=== PATIENT | male | born 1975 | race Caucasian/White ===

== ENCOUNTER → 2017-02-20 | Outpatient (CLI) | payer BC ==
[~2017-02-20] MED LIST: Gadobenate Dimeglumine 529 MG/ML 20 ML SDV IVPUSH STA
--- NOTE | 2017-02-24 10:28 | MR ---
EXAM DATE: 02/20/17 PATIENT'S AGE: 42 Patient: OBDULIO GAYTAN Facility: [place], [place] Site . Site : 1975 Study: MRI Spine Cervical [id number]/26/2017 7:25:46 PM Ordering Physician: Andres Alfonso Final Report: Indication: Neck pain. Comparison: None. Technique: Sagittal T1, T2, and STIR sequences. Axial T2/gradient sequences. posteriorly in 2 weighted sequences. Findings: Motion artifact. Straightening of the normal cervical lordosis which may be due to muscle spasm or patient positioning. Otherwise, normal vertebral body facet alignment. No fractures. No vertebral body loss of height. No spondylolisthesis. No ligamentous injury. Normal marrow signal. Normal cord signal. Visualized brainstem cerebellum appear normal. No abnormal enhancement. C2-3: No spinal canal or neural foraminal narrowing. C3-4: Disk degeneration with posterior disc bulge or disk osteophyte complex. Mild narrowing of spinal canal. Mild right and moderate left neural foraminal narrowing. Possible impingement of the left C4 nerve root. C4-5: Posterior disk bulge a disc osteophyte complex. Mild narrowing of spinal canal. Moderate bilateral neural foraminal narrowing with possible impingement of the C5 nerve roots. C5-6: Disc degeneration with posterior disc bulge. Mild narrowing of spinal canal. Moderate bilateral neural foraminal narrowing with impingement of the C6 nerve roots. C6-7: Disc degeneration with a left paracentral disc protrusion or disk osteophyte complex. Mild narrowing of spinal canal. Moderate right and moderate severe left neural foraminal narrowing. Impingement of the C7 nerve roots, left greater than right. C7-T1: No spinal canal or neural foraminal narrowing. No spinal canal or neural foraminal narrowing in the visualized upper thoracic spine. Impression: 1. Motion artifact. 2. Straightening of the normal cervical lordosis. Otherwise, normal alignment. No fractures. No spondylolisthesis. 3. Normal cord signal. 4. No abnormal enhancement. 5. At C3-4, mild narrowing of the spinal canal. Moderate narrowing of the left neural foramen. Possible impingement of the left C4 nerve root 6. At C4-5, moderate bilateral neural foraminal narrowing with possible impingement of the C5 nerve roots 7. At C5-6, moderate bilateral neural foraminal narrowing with possible impingement of the C6 nerve roots 8. At C6-7, moderate right and moderate to severe left neural foraminal narrowing. Impingement of the C7 nerve roots, left greater than right Dictated by Migel Ardon MD @ Feb 20 2017 10:12PM (Electronic Signature) Report Signed by Proxy. XI
== END ==
LOC: MW.MRI 17:49
PROVIDERS: ATTEND Chiropractor
DX: M99.01 Segmental and somatic dysfunction of cervical region (principal); M54.2 Cervicalgia; R20.0 Anesthesia of skin
CPT/HCPCS: 72156; A9577

== ENCOUNTER 2017-02-28 11:58 | Emergency (ER) | payer BC ==
[2017-02-28] MEDS ORDERED: Aspirin 81 MG Tab.Chew ONE (12:07)
[2017-02-28] MEDS ORDERED: Nitroglycerin 0.4 MG Tab.SL ONE (12:07)
[2017-02-28] MEDS ORDERED: Nitroglycerin 0.4 MG Tab.SL SL PRN (12:08)
[2017-02-28] MEDS ORDERED: Aspirin 81 MG Tab.Chew PO ONE ×2 (12:08→12:11)
[2017-02-28] MEDS ORDERED: Sodium Chloride 0.9% 2.5 ML Syringe FLUSH PRN ×2 (12:11)
[2017-02-28] MEDS ORDERED: Sodium Chloride 0.9% 10 ML Syringe FLUSH PRN ×2 (12:11)
--- NOTE | 2017-02-28 12:21 | EDM.PDOC ---
ED HPI GENERAL MEDICAL PROBLEM - General Chief Complaint: Chest Pain Stated Complaint: SORE CHEST Time Seen by Provider: 02/28/17 11:59 Source of Information: Reports: Patient History Limitations: Reports: No Limitations - History of Present Illness INITIAL COMMENTS - FREE TEXT/NARRATIVE: Presents to the ER reporting chest heaviness the patient states that about 7:00 last night. While sitting at a restaurant he had a sudden onset of some sharp pain in the TMJ area of his right jaw. At the same time he developed some precordial chest heaviness. No nausea, vomiting, diaphoresis but slight lightheadedness. The episode that was not related to eating as he had not started his meal. The symptoms spontaneously resolved after about 15 minutes. This morning he had some similar chest heaviness but no pain, nausea, sweating or radiation of the symptoms. Again, mild lightheadedness. The patient was resting at the time. The heaviness continues here at the ER but is less pronounced. He is otherwise healthy without chronic medical problems except psoriasis and acid reflux. He does take Nexium on a daily basis but occasionally has to supplement with Rolaids at night for reflux symptoms. Negative family history. He was seen in the clinic for a similar episode in October of 2016. Records including EKG from that visit were reviewed. Chest Pain Score (Numeric/FACES): 4 - Related Data Allergies Allergy/AdvReac Type Severity Reaction Status Date / Time pollen extracts Allergy Other Verified 02/28/17 12:25 Home Meds: Home Meds Esomeprazole Magnesium [Nexium] 20 mg PO DAILY 02/28/17 [History] Lisinopril 5 mg PO DAILY 02/28/17 [History] Simvastatin [Zocor] 5 mg PO BEDTIME 02/28/17 [History] ED ROS GENERAL - Review of Systems Review Of Systems: ROS reveals no pertinent complaints other than HPI. ED EXAM, GENERAL - Physical Exam Exam: See Below General Appearance: Alert Ears: Normal External Exam Nose: Normal Inspection Throat/Mouth: Normal Inspection Head: Atraumatic, Normocephalic Neck: Normal Inspection Respiratory/Chest: No Respiratory Distress, Lungs Clear, Normal Breath Sounds Cardiovascular: Normal Peripheral Pulses, Regular Rate, Rhythm, No Murmur Peripheral Pulses: 3+: Posterior Tibial (L), Posterior Tibial (R) GI/Abdominal: Normal Bowel Sounds, Soft, Non-Tender Back Exam: Normal Inspection Extremities: Normal Inspection Neurological: Alert, Oriented Psychiatric: Normal Affect, Normal Mood Skin Exam: Warm, Dry, Intact, Normal Color, Other (Psoriasis plaques on the flexor surface) Lymphatic: No Adenopathy Course - Vital Signs Last Recorded V/S: Last Vital Signs Temp 36.8 C 02/28/17 12:00 Pulse 77 02/28/17 12:34 Resp 18 02/28/17 12:34 BP 130/86 02/28/17 12:34 Pulse Ox 93 L 02/28/17 12:34 - Orders/Labs/Meds Orders: Active Orders 24 hr Category Date Time Status EKG Documentation Completion [RC] STAT Care 02/28/17 12:11 Active Oxygen Therapy [RC] ASDIRECTED Care 02/28/17 12:11 Active Chest 1V Frontal [CR] Stat Exams 02/28/17 12:11 Ordered Sodium Chloride 0.9% [Saline Flush] Med 02/28/17 12:11 Ordered 10 ml FLUSH ASDIRECTED PRN Sodium Chloride 0.9% [Saline Flush] Med 02/28/17 12:11 Ordered 10 ml FLUSH ASDIRECTED PRN Sodium Chloride 0.9% [Saline Flush] Med 02/28/17 12:11 Ordered 2.5 ml FLUSH ASDIRECTED PRN Sodium Chloride 0.9% [Saline Flush] Med 02/28/17 12:11 Ordered 2.5 ml FLUSH ASDIRECTED PRN Saline Lock Insert [OM.PC] Stat Oth 02/28/17 12:11 Ordered Medication Orders Sodium Chloride (Saline Flush) 10 ml FLUSH ASDIRECTED PRN PRN Reason: Keep Vein Open Sodium Chloride (Saline Flush) 2.5 ml FLUSH ASDIRECTED PRN PRN Reason: Keep Vein Open Sodium Chloride (Saline Flush) 10 ml FLUSH ASDIRECTED PRN PRN Reason: Keep Vein Open Sodium Chloride (Saline Flush) 2.5 ml FLUSH ASDIRECTED PRN PRN Reason: Keep Vein Open Labs: Laboratory Tests 02/28/17 02/28/17 02/28/17 Range/Units 12:15 12:15 12:15 WBC 7.40 (4.0-11.0) K/uL RBC 5.15 (4.50-5.90) M/uL Hgb 15.4 (13.0-17.0) g/dL Hct 44.8 (38.0-50.0) % MCV 87.0 (80.0-98.0) fL MCH 29.9 (27.0-32.0) pg MCHC 34.4 (31.0-37.0) g/dL RDW Std Deviation 41.1 (28.0-62.0) fl RDW Coeff of Roberto 13 (11.0-15.0) % Plt Count 266 (150-400) K/uL MPV 10.10 (7.40-12.00) fL Neut % (Auto) 61.7 (48.0-80.0) % Lymph % (Auto) 22.6 (16.0-40.0) % Emanuel % (Auto) 8.0 (0.0-15.0) % Eos % (Auto) 7.3 H (0.0-7.0) % Baso % (Auto) 0.4 (0.0-1.5) % Neut # (Auto) 4.6 (1.4-5.7) K/uL Lymph # (Auto) 1.7 (0.6-2.4) K/uL Emanuel # (Auto) 0.6 (0.0-0.8) K/uL Eos # (Auto) 0.5 (0.0-0.7) K/uL Baso # (Auto) 0.0 (0.0-0.1) K/uL Nucleated RBC % 0.0 /100WBC Nucleated RBCs # 0 K/uL Sodium 138 (136-146) mmol/L Potassium 4.4 (3.5-5.1) mmol/L Chloride 108 (98-110) mmol/L Carbon Dioxide 21 (21-31) mmol/L BUN 19 (6.0-23.0) mg/dL Creatinine 1.0 (0.6-1.5) mg/dL Est Cr Clr Drug Dosing 102.49 mL/min Estimated GFR (MDRD) > 60.0 ml/min Glucose 98 (60-110) mg/dL Calcium 9.2 (8.8-10.8) mg/dL Total Bilirubin 1.2 (0.1-1.5) mg/dL AST 25 (5-40) IU/L ALT 42 (8-54) IU/L Alkaline Phosphatase 59 (40-150) Troponin I < 0.10 (0.0-0.29) NG/ML Total Protein 7.0 (6.0-8.0) g/dL Albumin 4.5 (3.5-5.0) g/dL Globulin 2.5 (2.0-3.5) g/dL Albumin/Globulin Ratio 1.8 (1.3-2.8) Meds: Medications Generic Name Dose Route Start Last Admin Trade Name Freq PRN Reason Stop Dose Admin Sodium Chloride 10 ml 02/28/17 12:11 Saline Flush FLUSH ASDIRECTED PRN Keep Vein Open Sodium Chloride 2.5 ml 02/28/17 12:11 Saline Flush FLUSH ASDIRECTED PRN Keep Vein Open Sodium Chloride 10 ml 02/28/17 12:11 Saline Flush FLUSH ASDIRECTED PRN Keep Vein Open Sodium Chloride 2.5 ml 02/28/17 12:11 Saline Flush FLUSH ASDIRECTED PRN Keep Vein Open Discontinued Medications Generic Name Dose Route Start Last Admin Trade Name Freq PRN Reason Stop Dose Admin Aspirin 324 mg 02/28/17 12:08 02/28/17 12:09 Aspirin PO 02/28/17 12:09 324 mg STAT ONE Administration Aspirin Confirm 02/28/17 12:07 02/28/17 12:16 Aspirin Administered 02/28/17 12:08 Not Given Dose 324 mg .ROUTE .STK-MED ONE Aspirin 324 mg 02/28/17 12:11 02/28/17 12:16 Aspirin PO 02/28/17 12:12 Not Given ONETIME ONE Nitroglycerin 0.4 mg 02/28/17 12:08 Nitrostat SL 02/28/17 12:19 Q5M PRN Chest Pain Nitroglycerin Confirm 02/28/17 12:07 Nitrostat Administered 02/28/17 12:08 Dose 1.2 mg .ROUTE .STK-MED ONE - Re-Assessments/Exams Free Text/Narrative Re-Assessment/Exam: 02/28/17 13:14 Discussion with the patient that his workup so far is nondiagnostic. He was given the option of observation overnight or close followup with his primary care provider in the clinic. The patient stated that he would prefer to go home as he was already planning an appointment with his primary care provider for early next week and that [place] 5 blocks from the hospital and assured me that he would return promptly for chest pain, shortness of breath, nausea vomiting, lightheadedness. Departure - Departure Time of Disposition: 13:19 Disposition: Home, Self-Care 01 Condition: good Clinical Impression: Atypical chest pain Referrals: PCP,None [Primary Care Provider] - Abbe Butterfield DO [Physician] - Additional Instructions: 1. Followup with your primary provider in the clinic promptly early in next week for further evaluation and. 2. Return promptly for chest pain, shortness of breath, nausea, vomiting. - My Orders Last 24 Hours: My Active Orders 02/28/17 12:11 EKG Documentation Completion [RC] STAT Oxygen Therapy [RC] ASDIRECTED Chest 1V Frontal [CR] Stat Sodium Chloride 0.9% [Saline Flush] 10 ml FLUSH ASDIRECTED PRN Sodium Chloride 0.9% [Saline Flush] 10 ml FLUSH ASDIRECTED PRN Sodium Chloride 0.9% [Saline Flush] 2.5 ml FLUSH ASDIRECTED PRN Sodium Chloride 0.9% [Saline Flush] 2.5 ml FLUSH ASDIRECTED PRN Saline Lock Insert [OM.PC] Stat - Assessment/Plan Last 24 Hours: My Active Orders 02/28/17 12:11 EKG Documentation Completion [RC] STAT Oxygen Therapy [RC] ASDIRECTED Chest 1V Frontal [CR] Stat Sodium Chloride 0.9% [Saline Flush] 10 ml FLUSH ASDIRECTED PRN Sodium Chloride 0.9% [Saline Flush] 10 ml FLUSH ASDIRECTED PRN Sodium Chloride 0.9% [Saline Flush] 2.5 ml FLUSH ASDIRECTED PRN Sodium Chloride 0.9% [Saline Flush] 2.5 ml FLUSH ASDIRECTED PRN Saline Lock Insert [OM.PC] Stat
[2017-02-28 13:03] LABS: CHLORIDE,CL 108 mmol/L (98-110); SODIUM,NA 138 mmol/L (136-146)
[2017-02-28 15:17] VITALS: BP 124/86
--- NOTE | 2017-03-02 14:30 | CR ---
EXAM DATE: 02/28/17 PATIENT'S AGE: 42 Patient: OBDULIO GAYTAN Facility: [place], [place] Site . Site : 1975 Study: XRay Chest [id number]/3/2017 12:41:30 PM Ordering Physician: Doctor Oliva Final Report: Indication: Chest pain. Comparison: None. Findings: The bony thorax and soft tissue structures are intact. The cardiac and mediastinal silhouettes are normal. The pulmonary vasculature is normal. There are no pulmonary infiltrates. Impression: No active pulmonary disease. Dictated by Jaimie Somers MD @ Feb 28 2017 1:05PM (Electronic Signature) Report Signed by Proxy. XI
== END 2017-02-28 13:55 | disposition home or self-care (01) ==
LOC: MW.ED 11:58
DX: R07.89 Other chest pain (principal); Z91.018 Allergy to other foods; Z79.899 Other long term (current) drug therapy
CPT/HCPCS: 36415; 71010; 80053; 84484; 85025; 93005; 99285; A9270; 99284

== ENCOUNTER 2020-12-06 11:30 | Day surgery (SDC) | payer BC ==
[~2020-12-06 11:30] MED LIST changes: -Gadobenate Dimeglumine 529 MG/ML 20 ML SDV IVPUSH STA; +Lactated Ringers 1,000 ML IV SCH
[2020-12-06] MEDS ORDERED: fentaNYL 100 MCG/2 ML SDV ONE (11:36)
[2020-12-06] MEDS ORDERED: Propofol 200 MG/20 ML SDV ONE (11:36)
[2020-12-06] MEDS ORDERED: Midazolam 1 MG/ML 2 ML SDV ONE (11:36)
[2020-12-06] MEDS ORDERED: Lidocaine 2% 5 ML SDV ONE (11:37)
--- NOTE | 2020-12-06 12:04 | PCM.PREANE ---
Preanesthetic Assessment - Anesthesia/Transfusion/Family Hx Anesthesia History: Prior Anesthesia Without Reaction Transfusion History: No Prior Transfusion(s) - Physical Assessment Vital Signs: Last Vital Signs Temp 36.7 C 12/06/20 11:50 Pulse 66 12/06/20 11:50 Resp 16 12/06/20 11:50 BP 129/93 H 12/06/20 11:50 Pulse Ox 96 12/06/20 11:50 Height: 1.8 m Weight: 119.748 kg - Allergies Allergies/Adverse Reactions: Allergies Allergy/AdvReac Type Severity Reaction Status Date / Time pollen extracts Allergy Other Verified 12/03/20 09:26 PreAnesthesia Questionnaire Cardiovascular History: Reports: High Cholesterol, Hypertension Gastrointestinal History: Reports: GERD Musculoskeletal History: Reports: Fracture Other Musculoskeletal History: hx of fx hand Endocrine/Metabolic History: Reports: Obesity/BMI 30+ Dermatologic History: Reports: Psoriasis - Infectious Disease History Infectious Disease History: Reports: Chicken Pox - Past Surgical History Head Surgeries/Procedures: Reports: None GI Surgical History: Reports: Appendectomy, EGD Neurological Surgical History: Reports: C-Spine, Spinal Fusion Other Neurological Surgeries/Procedures: C3-4 and C6-7- has a "cage" Musculoskeletal Surgical History: Reports: Shoulder Surgery Other Musculoskeletal Surgeries/Procedures:: bone spurs removed from shoulder - SUBSTANCE USE Tobacco Use Status *Q: Former Tobacco User Tobacco Use Within Last Twelve Months: No Recreational Drug Use History: No - HOME MEDS Home Medications: Home Meds Lisinopril 10 mg PO DAILY 02/28/17 [History] Simvastatin [Zocor] 20 mg PO BEDTIME 02/28/17 [History] Omeprazole 40 mg PO DAILY 12/03/20 [History] - CURRENT (IN HOUSE) MEDS Current Meds: Current Medications Lactated Ringer's (Ringers, Lactated) 1,000 mls @ 125 mls/hr IV ASDIRECTED [facility] Last Admin: 12/06/20 11:55 Dose: 125 mls/hr Documented by:
--- NOTE | 2020-12-06 13:05 | PCM.OPNOTE ---
- General Post-Op/Procedure Note Date of Surgery/Procedure: 12/06/20 Operative Procedure(s): EGD with biopsies. polypectomy of gastric polyps Findings: hiatal hernia gastric polyps dictation number [id number] Pre Op Diagnosis: GERD Post-Op Diagnosis: hiatal hernia. gastric polyps Primary Surgeon: Mina Smith Pathology: EGD biopsies gastric polyps Complications: None Condition: Good
[2020-12-06] MEDS ORDERED: 50% Dextrose in Water 50 ML Syringe IVPUSH PRN (13:17)
[2020-12-06] MEDS ORDERED: fentaNYL 100 MCG/2 ML SDV IVPUSH PRN (13:17)
[2020-12-06] MEDS ORDERED: Naloxone 0.4 MG/ML Syringe IVPUSH PRN (13:17)
[2020-12-06] MEDS ORDERED: EPINEPHrine 1:10,000 1 MG/10 ML Syringe IVPUSH PRN (13:17)
[2020-12-06] MEDS ORDERED: Albuterol 0.083% 2.5 MG/3 ML Neb Soln NEB PRN (13:17)
[2020-12-06] MEDS ORDERED: Atropine 0.1 MG/ML 10 ML Syringe IVPUSH PRN ×2 (13:17)
--- NOTE | 2020-12-06 14:02 | CR ---
INDICATION: Assess for aspiration. COMPARISON: July 27, 2017 TECHNIQUE: AP upright portable single view chest radiograph FINDINGS: TUBES AND LINES: None. HEART AND MEDIASTINUM: The heart size is normal. The mediastinal contour appears normal for patient age. LUNGS AND PLEURAL SPACES: The lungs appear normal.The pleural spaces are unremarkable. OSSEOUS STRUCTURES: Age-appropriate appearance. No acute focal finding. IMPRESSION: Normal examination. There is no finding to suggest aspiration by plain film Dictated by Juanito Cooper MD @ Dec 06 2020 1:59PM Signed by Dr. Juanito Cooper @ Dec 06 2020 2:00PM
--- NOTE | 2020-12-06 14:38 | OR ---
SURGEON: PERCY GARCIA MD DATE OF PROCEDURE: 12/06/2020 PREOPERATIVE DIAGNOSIS: Gastroesophageal reflux disease. POSTOPERATIVE DIAGNOSES: 1. Small hiatal hernia. 2. Gastric polyps. PROCEDURE PERFORMED: Esophagogastroduodenoscopy with biopsies and polypectomies. PRIMARY SURGEON: Percy Garcia MD ANESTHESIA: With Anesthesiology. EXTENT OF EGD: To second part of duodenum. LIMITATIONS: None. REASON FOR PROCEDURE: The patient is a pleasant 45-year-old gentleman whose last EGD was about 10 years ago. He said it was normal. He has had issues with heartburn that is usually well controlled with omeprazole. However, he notices now he gets heartburn, breakthrough, at night. He will wake up and feel some food in the back of his throat. He denies any issues with swallowing. PROCEDURE IN DETAIL: Physical examination was performed. Major risks and benefits associated with the procedure were explained to the patient in detail. The patient verbalized understanding and agreement with the same. The patient was then connected to appropriate monitoring device and IV started. EKG, pulse, pulse oximetry, blood pressure, and capnography were monitored throughout the procedure. Continuous oxygen and sedation were provided by the anesthesiologist. The patient was in the supine position. Sedation was began. After adequate sedation was achieved, an upper endoscope was passed into the upper GI tract without any difficulty. The anatomy and mucosa of the esophagus, GE junction, stomach, and at least the second part of duodenum were all inspected. Duodenum appeared normal. Scope brought back into the stomach. Both retrograde and antegrade views of the stomach were done. Really no gastritis, but biopsies were taken of the pylorus, antral area to check for H pylori. In the body of the stomach, the patient did have multiple polyps. Larger ones were removed and a couple of smaller ones, did not remove all the polyps though. These looked to be more fundic gland polyp in nature. Of note, when the scope was entered, the patient did have a little bit of clear fluid looking like saliva in the stomach, which was suctioned out. The scope was brought up to the GE junction. The patient did have what appeared to be a slight hiatal hernia. His diaphragmatic seemed to be about 38 cm from incisor and actual GE junction appeared to be about 36 cm from incisors. The GE junction did appear intact with a good squamocolumnar junction. The scope was brought back into the stomach and inspected again. The polypectomy sites appeared with good hemostasis. The stomach was desufflated. Scope was brought again through the esophagus. Esophagus appeared normal. Scope was completely removed. Procedure was terminated. ENDOSCOPIC DIAGNOSES: 1. Small hiatal hernia. 2. Gastric polyps. RECOMMENDATIONS: The patient is to follow up in clinic to go over pathology. Next EGD will depend on the pathology. If the patient continues to have episodes of these food in the back of the throat, he might be a candidate for antireflux surgery. MICHEAL / JULIUS /[id number]
[2020-12-06 14:46] VITALS: BP 102/55; PULSE 63
--- NOTE | 2020-12-06 15:00 | PCM.POSTAN ---
POST ANESTHESIA ASSESSMENT - MENTAL STATUS Mental Status: Alert, Oriented - VITAL SIGNS Vital Signs: Last Vital Signs Temp 36.2 C 12/06/20 13:38 Pulse 63 12/06/20 14:35 Resp 16 12/06/20 14:35 BP 102/55 L 12/06/20 14:35 Pulse Ox 95 12/06/20 14:35 - RESPIRATORY Respiratory Status: Respiratory Rate WNL (Initially upon arrival to pacu, patient's saturations were 92% with nonrebreather. auscultation revealed coarse breath sounds. Aspiration suspected -cxr ordered. At discharge from phase 1- Spo2 at 96% room air. Auscultation of lungs ctab. ), Airway Patent, O2 Saturation Stable - CARDIOVASCULAR CV Status: Pulse Rate WNL, Blood Pressure Stable - GASTROINTESTINAL GI Status: No Symptoms - POST OP HYDRATION Hydration Status: Adequate & Stable - OBSERVATIONS Free Text/Narrative:: At discharge, patient is awake, alert, and in no acute distress. There were no apparent anesthetic complications at this time.
--- NOTE | 2020-12-06 15:23 | PCM48HPAN ---
Post Anesthesia Note - EVALUATION WITHIN 48HRS OF ANESTHETIC Vital Signs in Normal Range: Yes Patient Participated in Evaluation: Yes Respiratory Function Stable: Yes Airway Patent: Yes Cardiovascular Function Stable: Yes Hydration Status Stable: Yes Pain Control Satisfactory: Yes Nausea and Vomiting Control Satisfactory: Yes Mental Status Recovered: Yes Vital Signs: Last Vital Signs Temp 36.2 C 12/06/20 13:38 Pulse 63 12/06/20 14:35 Resp 16 12/06/20 14:35 BP 102/55 L 12/06/20 14:35 Pulse Ox 95 12/06/20 14:35 - COMMENTS/OBSERVATIONS Free Text/Narrative:: Reviewed CXR and it shows no aspiration. Discussed results with Dr. Cooper. Patient has no complaints at this time. SPO2 96% at baseline. lungs ctab. Patient advised to return to ER if he has any difficulty breathing, and fevers. AT this time, there are no apparent anesthetic complications at this time. Discharge per criteria.
== END 2020-12-06 15:00 | disposition home or self-care (01) ==
LOC: MW.SDS 11:30
PROVIDERS: ATTEND Surgery
DX: K31.7 Polyp of stomach and duodenum (principal); K21.9 Gastro-esophageal reflux disease without esophagitis; K44.9 Diaphragmatic hernia without obstruction or gangrene; I10 Essential (primary) hypertension; E78.00 Pure hypercholesterolemia, unspecified; E66.9 Obesity, unspecified; Z68.36 Body mass index [BMI] 36.0-36.9, adult; Z91.09 Other allergy status, other than to drugs and biological substances; Z87.891 Personal history of nicotine dependence; Z79.899 Other long term (current) drug therapy; Z98.890 Other specified postprocedural states
CPT/HCPCS: 43239; 71045; 88305; 88312; J2250; J2704; J7120; J3010

== ENCOUNTER 2023-04-29 08:00 | Day surgery (SDC) | payer BC ==
[~2023-04-29 08:00] MED LIST changes: +Midazolam 1 MG/ML 2 ML SDV ONE; +Propofol 200 MG/20 ML SDV ONE; +fentaNYL 100 MCG/2 ML SDV ONE
[2023-04-29] MEDS ORDERED: Propofol 200 MG/20 ML SDV ONE (10:24)
[2023-04-29 10:56] VITALS: BP 126/83; PULSE 67
== END 2023-04-29 11:05 | disposition home or self-care (01) ==
LOC: MW.SDS 08:00
PROVIDERS: ATTEND Surgery
DX: Z12.11 Encounter for screening for malignant neoplasm of colon (principal); D12.3 Benign neoplasm of transverse colon; K29.50 Unspecified chronic gastritis without bleeding; K31.89 Other diseases of stomach and duodenum; K31.0 Acute dilatation of stomach; K31.7 Polyp of stomach and duodenum; K44.9 Diaphragmatic hernia without obstruction or gangrene; K21.9 Gastro-esophageal reflux disease without esophagitis; J45.909 Unspecified asthma, uncomplicated; I10 Essential (primary) hypertension; J30.9 Allergic rhinitis, unspecified; I20.8 Other forms of angina pectoris; G47.19 Other hypersomnia; R53.83 Other fatigue; E78.00 Pure hypercholesterolemia, unspecified; E78.5 Hyperlipidemia, unspecified; E66.9 Obesity, unspecified; E55.9 Vitamin D deficiency, unspecified; Z20.822 Contact with and (suspected) exposure to COVID-19; Z91.09 Other allergy status, other than to drugs and biological substances; Z87.891 Personal history of nicotine dependence; Z98.890 Other specified postprocedural states; Z90.49 Acquired absence of other specified parts of digestive tract; Z79.899 Other long term (current) drug therapy
CPT/HCPCS: 43239; 45380; J2250; J2704; J3010; J7120

== ENCOUNTER 2025-02-19 08:13 | Emergency (ER) | payer BC ==
[2025-02-19 09:41] VITALS: BP 122/88; PULSE 71
== END 2025-02-19 09:50 | disposition home or self-care (01) ==
LOC: MW.ED 08:13
DX: H66.91 Otitis media, unspecified, right ear (principal); J45.909 Unspecified asthma, uncomplicated; K21.9 Gastro-esophageal reflux disease without esophagitis; E66.9 Obesity, unspecified; I10 Essential (primary) hypertension; Z79.899 Other long term (current) drug therapy; Z68.33 Body mass index [BMI] 33.0-33.9, adult
CPT/HCPCS: 87651; 99283